=== PATIENT | female | born 1980 | race Caucasian/White ===

== ENCOUNTER 2022-04-25 13:06 | Emergency (ER) | payer SELFPAY ==
[2022-04-25 13:24] VITALS: BP 109/83; PULSE 120; RESP 18
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
--- NOTE | 2022-04-25 13:31 | XR ---
EXAMINATION TYPE: XR pelvis AP view DATE OF EXAM: 04/25/2022 CLINICAL HISTORY: pain TECHNIQUE: Single view the pelvis is submitted. FINDINGS: No evidence for fracture, dislocation or bony lesion. Joint spaces are well-preserved. S I joints appear symmetric. Lucency overlying the right inferior pubic ramus is felt to be external to the patient. IMPRESSION: 1. No acute fracture or dislocation seen. ICD 10 NO FRACTURE, INITIAL EVALUATION
--- NOTE | 2022-04-25 13:31 | XR ---
EXAMINATION TYPE: XR chest 1V portable DATE OF EXAM: 04/25/2022 COMPARISON: NONE HISTORY: Pain posttrauma TECHNIQUE: Single frontal view of the chest is obtained. FINDINGS: There is no focal air space opacity, pleural effusion, or pneumothorax seen. The cardiac silhouette size is within normal limits. Question deformity of the left scapula.. IMPRESSION: 1. Question deformity left scapula correlate for point tenderness and fracture.
[2022-04-25 13:35] LABS: Basophils % (A) 0 %; Eosinophils % (A) 0 %; HCT 40.6 % (34.0-46.0); HGB 13.7 gm/dL (11.4-16.0); Lymphocytes % (A) 23 %; MCH 32.1 pg (25.0-35.0); MCHC 33.7 g/dL (31.0-37.0); MCV 95.3 fL (80.0-100.0); Mean Platelet Volume 7.8; Monocytes # (A) 0.2 k/uL (0-1.0); Monocytes % (A) 2 %; Neutrophils # (A) 6.1 k/uL (1.3-7.7); Neutrophils % (A) 73 %; Platelet Count 303 k/uL (150-450); RBC 4.26 m/uL (3.80-5.40); RDW 11.9 % (11.5-15.5); WBC 8.4 k/uL (3.8-10.6)
[2022-04-25 13:48] LABS: Albumin 4.3 g/dL (3.5-5.0); Calcium 7.7 mg/dL (8.4-10.2); Potassium 3.2 mmol/L (3.5-5.1); Total Bilirubin 0.5 mg/dL (0.2-1.3); Total Protein 6.7 g/dL (6.3-8.2)
[2022-04-25 13:54] LABS: INR 1.1 (<1.2); Partial Thromboplastin Time 22.2 sec (22.0-30.0); Prothrombin Time 11.5 sec (9.0-12.0)
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
--- NOTE | 2022-04-25 14:17 | CT ---
EXAMINATION TYPE: CT thor lumbar spine w con DATE OF EXAM: 04/25/2022 COMPARISON: None HISTORY: Pain posttrauma CT DLP: 1202 mGycm Automated exposure control for dose reduction was used. CONTRAST: None FINDINGS: There is a mild to moderate superior endplate compression fracture T5. Posterior elements appear inta ct. There is a displaced comminuted fracture of the left scapula with significant displacement. On axial image 11 there is an oblique fracture of the first rib near its vertebral body articulation. Minimally displaced noticed medially portions of the rib cage are included within the [id number] and should be correlated with a dedicated CT chest abdomen and pelvis. Remaining vertebral segments appear to be intact with normal alignment. Vertebral body height and dis c interspace maintained. Tarlov cyst in the sacrum noted. Cannot exclude a subtle deformity of the coccyx which is only partially included in the [id number] correlate with the CT abdomen and pelvis report and point tenderness for coccygeal dislocation or fr acture. Additionally, there is asymmetric density in the right posterior gluteal region. Soft tissue hematoma in the differential diagnosis correlate clinically. IMPRESSION: 1. Mild to moderate superior endplate acute fracture T5 2. Comminuted displaced fracture left scapula 3. Findings suspicious for hairline fracture posterior margin left first rib. 4. Cannot exclude a subtle deformity of the coccyx which is only partially included in the field-of-v iew correlate with the CT abdomen and pelvis report and point tenderness for coccygeal dislocation or fracture. Additionally, there is asymmetric density in the right posterior gluteal region. Soft tiss ue hematoma in the differential diagnosis correlate clinically. 5. Soft tissue subcutaneous abnormal attenuation could represent posttraumatic edema or hematoma. Co rrelate clinically.
[2022-04-25] MEDS ORDERED: fentaNYL (PF) 50 MCG/ML 2 ML AMP IVP ONE (14:34)
--- NOTE | 2022-04-25 14:35 | XR ---
EXAMINATION TYPE: XR ankle complete RT DATE OF EXAM: 04/25/2022 COMPARISON: NONE HISTORY: Pain TECHNIQUE: Frontal, lateral and oblique images of the right ankle are obtained. COMPARISON: None. FINDINGS: Markedly comminuted distal tibial fracture with displacement and intra-articular extension. Displaced distal fibular fracture. Overlying cast material obscures fine bony detail. Extensive soft tissue swelling. IMPRESSION: As above
--- NOTE | 2022-04-25 14:36 | XR ---
EXAMINATION TYPE: XR shoulder complete LT DATE OF EXAM: 04/25/2022 CLINICAL HISTORY: pain COMPARISON: NONE TECHNIQUE: Three views of the left shoulder are obtained. FINDINGS: Comminuted scapular body fracture. No additional fractures about the left shoulder are seen . Left first rib fracture not visualized on this examination. The acromioclavicular and glenohumeral joint spaces appear within normal limits. IMPRESSION: As above
--- NOTE | 2022-04-25 14:38 | XR ---
EXAMINATION TYPE: XR femur RT DATE OF EXAM: 04/25/2022 CLINICAL HISTORY: pain TECHNIQUE: Two views of the right femur are obtained. COMPARISON: None. FINDINGS: There is no acute fracture or dislocation seen of the femur. The hip and knee joints appear within normal limits. The overlying soft tissue appears unremarkable. IMPRESSION: There is no acute fracture or dislocation seen of the femur. ICD 10 NO FRACTURE, INITIAL EVALUATION
[2022-04-25 14:41] LABS: Appearance,Urine Clear (Clear); Bilirubin,Urine Negative (Negative); Blood,Urine Large (Negative); Color,Urine Light Yellow; Glucose,Urine (UA) 3+ (Negative); Ketones,Urine Negative (Negative); Leukocyte Esterase,Urine Negative (Negative); Mucus,Urine Rare /hpf; Nitrite,Urine Negative (Negative); Protein,Urine 3+ (Negative); RBC,Urine 80 /hpf (0-5); Squamous Epithelial Cell,Urine <1 /hpf (0-4); Urobilinogen,Urine <2.0 mg/dL (<2.0); WBC,Urine 11 /hpf (0-5)
[2022-04-25 15:06] LABS: Amphetamine Screen,Urine Not Detected (NotDetected); Barbiturate Screen,Urine Not Detected (NotDetected); Benzodiazepines Screen,Urine Not Detected (NotDetected); Cocaine Screen,Urine Not Detected (NotDetected); Methadone Screen, Urine Not Detected (NotDetected); Opiate Screen,Urine Not Detected (NotDetected); Oxycodone Screen, Urine Not Detected (NotDetected); Phencyclidine Screen,Urine Not Detected (NotDetected); Tricyclic Antidepressant,Urine Not Detected (NotDetected); Urn Cannabinoid Scrn Not Detected (NotDetected)
[2022-04-25 15:40] VITALS: TEMP 96.1
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
== END 2022-04-25 16:17 | disposition short-term general hospital (02) ==
LOC: EC 13:06
DX: S32.2XXA Fracture of coccyx, initial encounter for closed fracture (principal); S82.402A Unspecified fracture of shaft of left fibula, initial encounter for closed fracture; S42.102A Fracture of unspecified part of scapula, left shoulder, initial encounter for closed fracture; S22.39XA Fracture of one rib, unspecified side, initial encounter for closed fracture; T14.91XA Suicide attempt, initial encounter; Z87.891 Personal history of nicotine dependence; Y93.39 Activity, other involving climbing, rappelling and jumping off
CPT/HCPCS: 36415; 93005; 86900; 86901; 80053; 84484; 85025; 85610; 85730; 86850; 81001; 81025; 80306; 80320; 87086; 72170; 73030; 73552; 73610; 71045; 72129; 72125; 72132; 70450; 71260; 74177; 99291; 96374; 29515; J3010; Q9967